=== PATIENT | male | born 1995 | race Caucasian/White ===

== ENCOUNTER 2020-11-24 16:52 | Emergency (ER) | payer OTHER ==
[~2020-11-24] VITALS: Ht 175.3 cm; Wt 72.6 kg
[2020-11-24] MEDS ORDERED: IBUPROFEN 800800 M1 PO (18:11)
[2020-11-24] MEDS ORDERED: HYDROCODON-ACE1 EAC7 PO (18:11)
[2020-11-24] MEDS ORDERED: KEFLEX500 M1 PO (18:11)
[2020-11-24 18:28] VITALS: BP 114/76
== END 2020-11-24 18:29 | disposition home or self-care (01) ==
LOC: M.ERS 16:52
DX: S02.2XXA Fracture of nasal bones, initial encounter for closed fracture (principal); Z90.49 Acquired absence of other specified parts of digestive tract; Z90.89 Acquired absence of other organs; W51.XXXA Accidental striking against or bumped into by another person, initial encounter; Y93.89 Activity, other specified; Y92.89 Other specified places as the place of occurrence of the external cause; Y99.8 Other external cause status